=== PATIENT | male | born 1995 | race African-American/Black ===

== ENCOUNTER → 2016-08-22 12:24 | Outpatient (CLI) | payer MEDICAID ==
[2016-08-22 14:14] LABS: T4 THYROXINE 10.3 ug/dL (4.7-13.3)
[2016-08-23 08:22] LABS: FOLATE (FOLIC ACID) - SERUM 16.4 ng/mL (>3.0)
--- NOTE | 2016-08-23 18:08 | EC ---
PATIENT:EVA TOVAR JR DATE OF SERVICE: 08/22/16 SEX: M MEDICAL RECORD: [id number] DATE OF : [birth year] LOCATION:[facility] AGE OF PATIENT: 20 ADMISSION DATE: 08/22/16 REFERRING PHYSICIAN: INTERPRETING PHYSICIAN: JADE NIELSON MD ECHOCARDIOGRAM REPORT ECHO CHARGES 4 ECHO COMPLETE CLINICAL DIAGNOSIS: DIZZINESS/DECREASED WHITE BLOOD CELL COUNT/ABNORMAL LIVER FUNCTION ECHOCARDIOGRAPHIC MEASUREMENTS (adult normal given) AC root (d.<3.7cm) 3.8 LV Septum d (<1.2 cm> 1.6 Valve Excursion 2.2 LV Septum (systole) 2.3 Left Atria (s.<4.0cm> 3.6 LVPW d(<1.2cm) 1.4 RV (d.<2.3cm) 3.2 LVPW (sytole) 2.2 LV diastole(<5.6CM) 5.5 MV E-F(>70mm/sec) LV systole 3.0 LVOT Diameter 2.3 MV exc.(>10mm) Est.ejection fraction (50-75%) Pericardial Effusion N DOPPLER: LVIT A 38.0 E 65.0 LA RVSP 36.0 LVOT 90.0 AOP1/2T Asc. Ao 128 RVOT 52.0 RA PA 88.0 AV Gradient Peak 6.5 AV Mean 3.1 AV Area 3.3 MV Gradient Peak 3.8 MV Mean 0.98 MV Area COMMENTS: Linen Controller: Nikko RAMOS Promotional Advertising Assistant:Zak Lynn TAPE# PACS DATE OF SERVICE: 08/22/2016 Echocardiogram FINDINGS: 1. Left ventricular chamber size is within normal limits. Left ventricular systolic function is normal. Overall ejection fraction estimated at 55%. 2. Left atrium is within normal limits at 3.6 cm. Right atrium and right ventricular chamber sizes are mildly dilated. ECHOCARDIOGRAM REPORT [id number] EVA TOVAR JR 3. Valvular structures have normal structure and motion. 4. Doppler interrogation reveals trace mitral regurgitation, mild tricuspid regurgitation. No other valvular insufficiency or stenosis. 5. No evidence of pericardial effusion or left ventricular thrombus. 6. Pulmonary systolic pressure is normal at 36 mmHg. TRANSINT:[id number] Voice Confirmation ID: [id number] DOCUMENT ID: [id number] JADE NIELSON MD at 1808 CC: [id number] DICTATION DATE: 08/22/16 1624 FOUNDRY SUPERINTENDANT: 08/23/16 1050 [facility] CLI 08/22/16 [id number] [place] [address]
== END | disposition home or self-care (01) ==
LOC: D.ECHO 08-19 13:00
PROVIDERS: Psychiatry & Neurology Neurology
DX: R42 Dizziness and giddiness (principal); D72.818 Other decreased white blood cell count; R94.5 Abnormal results of liver function studies

== ENCOUNTER → 2017-05-16 07:24 | Outpatient (CLI) | payer OTHER, MEDICAID | END | disposition home or self-care (01) | LOC: D.US 07:24 | DX: E04.1 Nontoxic single thyroid nodule (principal) ==

== ENCOUNTER 2018-10-17 09:32 | Emergency (ER) | payer OTHER ==
[~2018-10-17] VITALS: Ht 182.9 cm; Wt 106.8 kg
[2018-10-17 09:34] VITALS: Ht 182.9 cm; Wt 106.8 kg
[2018-10-17 11:36] LABS: BASOPHILS 0.3 % (0-2); EOSINOPHILS 1.6 % (0-7); HEMATOCRIT 43.3 % (42.0-54.0); HEMOGLOBIN 15.7 g/dL (13.5-17.5); LYMPHOCYTES 36.3 % (15-50); MCH 29.9 pg (26.0-34.0); MCHC 36.3 g/dL (31.0-37.0); MCV 82.5 fL (80.0-100.0); MEAN PLATELET VOLUME 10.7 fL (7.4-10.4); MONOCYTES 6.2 % (2-11); NEUTROPHILS 55.6 % (40-80); PLATELET COUNT 175 10x3/uL (130-400); RBC 5.25 10x6/uL (4.20-6.10); RDW 13.2 % (11.5-14.5); WBC 3.2 10x3/uL (4.8-10.8)
[2018-10-17 11:37] LABS: APPEARANCE CLEAR (CLEAR); BILIRUBIN NEGATIVE (NEGATIVE); COLOR YELLOW (YELLOW); GLUCOSE NEGATIVE (NEGATIVE); KETONE NEGATIVE (NEGATIVE); NITRITE NEGATIVE (NEGATIVE); PROTEIN NEGATIVE (NEGATIVE); SPECIFIC GRAVITY 1.015 (1.005-1.020); UROBILINOGEN NORMAL (NORMAL)
[2018-10-17 11:54] LABS: ALBUMIN 4.1 g/dL (3.4-5.0); ALKALINE PHOSPHATASE 51 U/L (46-116); ALT (SGPT) 21 U/L (10-68); BILIRUBIN - TOTAL 0.59 mg/dL (0.2-1.3); CALC OSMOLALITY 279 mosm/kg (275-300); CALCIUM 8.9 mg/dL (8.5-10.1); CARBON DIOXIDE 27.4 mmol/L (21.0-32.0); CHLORIDE - SERUM 104 mmol/L (98-107); CREATININE - SERUM 1.2 mg/dL (0.6-1.3); GLUCOSE 89 mg/dL (74-106); POTASSIUM - SERUM 3.9 mmol/L (3.5-5.1); PROTEIN - SERUM 7.7 g/dL (6.4-8.2); SODIUM 140 mmol/L (136-145); UREA NITROGEN 17 mg/dL (7-18); eGFR NON AFRICAN AMERICAN 80 mL/min (90-120)
[2018-10-17] MEDS ORDERED: BACLOFEN20 M1 PO (12:15)
[2018-10-17] MEDS ORDERED: VOLTAREN75 MG PO (12:15)
--- NOTE | 2018-10-17 12:38 | NUR ---
DR. GARCIA NOTIFIED AND REVIEWED PT'S BEHAVIOR AND ASSESSMENT RESULTS. PT IS A LOW RISK PER DR. GARCIA. DR. GARCIA STAED TO GIVE PT RESOURCES TO PT AT TIME OF DISCHARGE. NO FURTHER ORDERS AT THIS TIME. RESOURCES REVIEWED WITH PT AND HE VERBALIZED UNDERSTANDING.
[2018-10-17 13:12] VITALS: BP 116/65
== END 2018-10-17 13:14 | disposition home or self-care (01) ==
LOC: D.ER 09:32
PROVIDERS: Family Medicine
DX: M48.061 Spinal stenosis, lumbar region without neurogenic claudication (principal); M54.5 Low back pain